=== PATIENT | female | born 1970 | race American Indian/Alaskan Native ===

== ENCOUNTER 2018-10-05 17:07 | Emergency (ER) | payer OTHER ==
[2018-10-05 17:26] VITALS: BMI 29.2
[2018-10-05 17:56] VITALS: RESP 16
[2018-10-05] MEDS ORDERED: TDAP Vaccine 0.5 mL Syr IM ONE (18:08)
[2018-10-05] MEDS ORDERED: Naproxen 550 mg Tab PO STA (18:09)
[2018-10-05] MEDS ORDERED: Tmp-Smz 800 mg-160 mg DS Tab PO STA (18:09)
--- NOTE | 2018-10-05 18:14 | ED PDOC ---
Arrival/HPI - General Chief Complaint: Lower Extremity Problem/Injury Time Seen by Provider: 10/05/18 17:19 Historian: Patient - History of Present Illness Narrative History of Present Illness (Text): 10/05/18 18:14 48 yo F complaining of 3 day h/o atraumatic pain, redness and swelling to the R great toe, states that she had a pedicure 5 days ago. Reports no fevers, chills, numbness, decrease in ROM, other joint pain. Has no additional complaints. Past Medical History - Tetanus Immunization Tetanus Immunization: Unknown - Reproductive Menopause: Yes - Cardiac Hx Cardiac Disorders: Yes - Pulmonary Hx Respiratory Disorders: No - Neurological Hx Neurological Disorder: No - HEENT Hx HEENT Disorder: No - Renal Hx Renal Disorder: No - Endocrine/Metabolic Hx Endocrine Disorders: No - Hematological/Oncological Hx Blood Disorders: No - Integumentary Hx Dermatological Disorder: No - Musculoskeletal/Rheumatological Hx Musculoskeletal Disorders: No - Gastrointestinal Hx Gastrointestinal Disorders: No - Genitourinary/Gynecological Hx Genitourinary Disorders: No - Psychiatric Hx Psychophysiologic Disorder: No Hx Substance Use: No - Anesthesia Hx Anesthesia: No Family/Social History Family/Social History: No Known Family HX Smoking Status: Never Smoked Hx Alcohol Use: No Hx Substance Use: No Allergies/Home Meds Allergies/Adverse Reactions: Allergies No Known Allergies Allergy (Verified 10/05/18 17:26) Review of Systems - Review of Systems Constitutional: absent: Fatigue, Fevers Musculoskeletal: Arthralgias. absent: Back Pain, Neck Pain Skin: absent: Rash, Pruritis, Skin Lesions Neurological: absent: Headache, Dizziness Physical Exam Vital Signs Temp Pulse Resp BP Pulse Ox 10/05/18 17:52 98.9 F 74 16 134/86 98 Temperature: Afebrile Blood Pressure: Normal Pulse: Regular Respiratory Rate: Normal Appearance: Positive for: Well-Appearing, Non-Toxic, Comfortable Pain Distress: Mild Mental Status: Positive for: Alert and Oriented X 3 - Systems Exam Upper Extremity: Present: Normal Inspection, Normal ROM. No: Edema Lower Extremity: Present: NORMAL PULSES, Normal ROM, Tenderness (+tenderness, mild edema and erythema to the R great toe by the nail margin without any signs of ingrown toenail), Neurovascularly Intact, Capillary Refill < 2 s. No: Deformity, Temperature Abnormalties Neurological: Present: GCS=15, CN II-XII Intact, Speech Normal, Motor Func Grossly Intact, Normal Sensory Function Skin: Present: Warm, Dry, Normal Color. No: Rashes Psychiatric: Present: Alert, Oriented x 3, Normal Insight, Normal Concentration Medical Decision Making ED Course and Treatment: 10/05/18 18:11 Patient medicated with tdap IM, bactrim ds PO, keflex PO, and naprosyn PO. Advised warm compresses and to keep the foot elevated. Advised to follow up with primary care physician or podiatry referral in 1-2 days without fail. Advised to take medication as prescribed. Return to the emergency room at any time for any new or worsening symptoms. Patient states she fully agrees with and understands discharge instructions. States that she agrees with the plan and disposition. Verbalized and repeated discharge instructions and plan. I have given the patient opportunity to ask any additional questions. 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 Disposition/Present on Arrival - Present on Arrival Any Indicators Present on Arrival: No History of DVT/PE: No History of Uncontrolled Diabetes: No Urinary Catheter: No History of Decub. Ulcer: No History Surgical Site Infection Following: None - Disposition Have Diagnosis and Disposition been Completed?: Yes Diagnosis: Paronychia of great toe of right foot Disposition: HOME/ ROUTINE Disposition Time: 18:00 Patient Plan: Discharge Condition: STABLE Discharge Instructions (ExitCare): Paronychia (DC) Additional Instructions: Thank you for letting us take care of you today. You were treated for paronychia to the R great toe. The emergency medical care you received today was directed at your acute symptoms. If you were prescribed any medication, please fill it and take as directed. It may take several days for your symptoms to resolve. Return to the Emergency Department if your symptoms worsen, do not improve, or if you have any other problems. Please contact your doctor in 2 days for re-evaluation and follow up / or call one of the physicians/clinics you have been referred to that are listed on the Patient Visit Information form that is included in your discharge packet. Bring any paperwork you were given at discharge with you along with any medications you are taking to your follow up visit. Our treatment cannot replace ongoing medical care by a primary care provider (PCP) outside of the emergency department. Thank you for allowing the [facility] team to be part of your care today. Prescriptions: Cephalexin [Keflex] 500 mg PO Q6 #28 capsule Naproxen 500 mg PO BID PRN #20 tablet PRN Reason: Pain, Moderate (4-7) Sulfamethoxazole/Trimethoprim [Bactrim DS 800 mg-160 mg] 2 tab PO BID #28 tab Referrals: Ronnie Leong DPM [Staff Provider] - Follow up with primary Forms: [employer] (Bengali), WORK NOTE
[2018-10-05 19:03] VITALS: BP 148/97; PULSE 81; TEMP 98.4; O2SAT 100
== END 2018-10-05 19:03 | disposition home or self-care (01) ==
LOC: ED 17:07
DX: L03.031 Cellulitis of right toe (principal); Z23 Encounter for immunization